=== PATIENT | male | born 1940 | race Caucasian/White ===

== ENCOUNTER 2021-06-28 07:05 | Outpatient (REF) | payer MEDICARE, SELFPAY ==
[2021-06-28 07:38] LABS: Prothrombin Time 11.9 SEC (9.9-13.0)
== END 2021-06-28 07:06 | disposition home or self-care (01) ==
LOC: HO.MMNH1L 07:05
PROVIDERS: Visit Provider Family Medicine
DX: I48.91 Unspecified atrial fibrillation (principal)
CPT/HCPCS: 36415; 85610

== ENCOUNTER 2021-07-01 05:00 | Outpatient (REF) | payer MEDICARE, SELFPAY | END 2021-07-01 05:01 | disposition home or self-care (01) | LOC: HO.MMNH1L 05:00 | PROVIDERS: Visit Provider Family Medicine | DX: Z13.89 Encounter for screening for other disorder (principal) ==

== ENCOUNTER 2021-07-03 07:02 | Outpatient (REF) | payer SELFPAY ==
[2021-07-03 07:24] LABS: MANUAL DIFF FLAG NO
[2021-07-03 07:27] LABS: Basophils Percent Auto 0.8 % (0-2); Eosinophils Absolute Auto 0.2 X10*3/uL (0.0-0.4); Eosinophils Percent Auto 4.1 % (0-4); Hematocrit 29.1 % (42-52); Hemoglobin 9.6 g/dl (14.0-18.0); Imm Gran Abs Auto 0.02 X10*3/uL (0.00-0.03); Imm Gran Pct Auto 0.4 % (0.0-0.4); Lymphocytes Absolute Auto 0.8 X10*3/uL (1.2-4.9); Lymphocytes Percent Auto 15.4 % (20-40); Mean Corpuscular Hemoglobin 33.6 pg (27.0-33.0); Mean Corpuscular Volume 101.7 fL (80-98); Mean Platelet Volume 10.7 fL (9.4-12.4); Monocytes Absolute Auto 0.7 X10*3/uL (0.1-1.2); Monocytes Percent Auto 13.7 % (2-11); Neutrophils Absolute Auto 3.5 X10*3/uL (2.0-8.3); Neutrophils Percent Auto 65.6 % (45-73); Platelet Count 124 X10*3/uL (160-400); Red Blood Count 2.86 X10*6/uL (4.60-5.80); Red Cell Distribution Width 14.6 % (11.0-16.0); White Blood Count 5.3 X10*3/uL (4.8-10.8)
[2021-07-03 07:35] LABS: INTERNATIONAL NORM RATIO 2.3 (0.9-1.1); Prothrombin Time 27.2 SEC (9.9-13.0)
[2021-07-03 08:26] LABS: Alanine Aminotransferase 6 U/L (0-40); Albumin Level 3.5 g/dL (3.5-5.0); Alkaline Phosphatase 69 U/L (39-117); Anion Gap 22 (12-20); Aspartate Amino Transferase 9 U/L (5-37); Bilirubin Total 0.5 mg/dL (0.0-1.0); Blood Urea Nitrogen 70 mg/dL (9-16); Calcium 7.5 mg/dL (8.4-10.2); Carbon Dioxide 21 mmol/L (22-29); Chloride 98 mmol/L (96-108); Estimated Glomerular Filt Rate 5; Glucose Random 70 mg/dL (60-115); Potassium 4.8 mmol/L (3.3-5.1); Sodium 136 mmol/L (135-145); Total Protein 6.1 g/dL (6.5-8.0)
== END 2021-07-03 07:03 | disposition home or self-care (01) ==
LOC: HO.MMNH1L 07:02
PROVIDERS: Visit Provider Family Medicine
DX: S22.32XA Fracture of one rib, left side, initial encounter for closed fracture (principal); W19.XXXA Unspecified fall, initial encounter; Y93.9 Activity, unspecified; Y92.9 Unspecified place or not applicable; Y99.9 Unspecified external cause status
CPT/HCPCS: 36415; 80053; 85025; 85610

== ENCOUNTER 2021-07-22 | Outpatient (REF) | payer MEDICARE, SELFPAY ==
[2021-07-22 06:24] LABS: Hematocrit 32.2 % (42-52); Hemoglobin 10.4 g/dl (14.0-18.0); Mean Corpuscular HGB Conc 32.3 g/dl (31.0-36.0); Mean Corpuscular Volume 102.2 fL (80-98); Mean Platelet Volume 11.6 fL (9.4-12.4); Platelet Count 133 X10*3/uL (160-400); Red Blood Count 3.15 X10*6/uL (4.60-5.80); Red Cell Distribution Width 14.5 % (11.0-16.0); White Blood Count 7.7 X10*3/uL (4.8-10.8)
[2021-07-22 06:28] LABS: INTERNATIONAL NORM RATIO 1.1 (0.9-1.1); Prothrombin Time 12.8 SEC (9.9-13.0)
[2021-07-22 07:34] LABS: Anion Gap 24 (12-20); Blood Urea Nitrogen 77 mg/dL (9-16); Calcium 8.9 mg/dL (8.4-10.2); Carbon Dioxide 22 mmol/L (22-29); Chloride 100 mmol/L (96-108); Glucose Random 101 mg/dL (60-115); Potassium 4.5 mmol/L (3.3-5.1); Sodium 141 mmol/L (135-145)
[2021-07-22 07:48] LABS: Estimated Glomerular Filt Rate 5
== END 2021-07-22 00:01 | disposition home or self-care (01) ==
LOC: HO.MMNH1L
PROVIDERS: Visit Provider Family Medicine
DX: I48.0 Paroxysmal atrial fibrillation (principal); I10 Essential (primary) hypertension; Z95.2 Presence of prosthetic heart valve
CPT/HCPCS: 36415; 80048; 85027; 85610

== ENCOUNTER 2021-07-24 | Outpatient (REF) | payer MEDICARE, SELFPAY ==
[2021-07-24 07:03] LABS: INTERNATIONAL NORM RATIO 1.1 (0.9-1.1); Prothrombin Time 12.5 SEC (9.9-13.0)
== END 2021-07-24 00:01 | disposition home or self-care (01) ==
LOC: HO.MMNH1L
PROVIDERS: Visit Provider Family Medicine
DX: I48.91 Unspecified atrial fibrillation (principal)
CPT/HCPCS: 36415; 85610

== ENCOUNTER 2021-07-29 00:21 | Outpatient (REF) | payer MEDICARE, SELFPAY ==
[2021-07-29 06:57] LABS: Hematocrit 33.9 % (42-52); Mean Corpuscular HGB Conc 32.4 g/dl (31.0-36.0); Mean Corpuscular Hemoglobin 33.4 pg (27.0-33.0); Mean Platelet Volume 11.1 fL (9.4-12.4); NRBC Pct Auto 0.7 /100WBC (0.0-0.2); Platelet Count 128 X10*3/uL (160-400); Red Blood Count 3.29 X10*6/uL (4.60-5.80); Red Cell Distribution Width 14.8 % (11.0-16.0); White Blood Count 6.7 X10*3/uL (4.8-10.8)
[2021-07-29 07:13] LABS: INTERNATIONAL NORM RATIO 1.6 (0.9-1.1); Prothrombin Time 17.8 SEC (9.9-13.0)
[2021-07-29 08:15] LABS: Anion Gap 23 (12-20); Blood Urea Nitrogen 59 mg/dL (9-16); Calcium 8.6 mg/dL (8.4-10.2); Carbon Dioxide 26 mmol/L (22-29); Chloride 97 mmol/L (96-108); Estimated Glomerular Filt Rate 6; Glucose Random 106 mg/dL (60-115); Potassium 3.6 mmol/L (3.3-5.1); Sodium 142 mmol/L (135-145)
== END 2021-07-29 00:22 | disposition home or self-care (01) ==
LOC: HO.MMNH1L 00:21
PROVIDERS: Visit Provider Family Medicine
DX: I48.0 Paroxysmal atrial fibrillation (principal); S22.32XA Fracture of one rib, left side, initial encounter for closed fracture; W19.XXXA Unspecified fall, initial encounter; Y93.9 Activity, unspecified; Y92.9 Unspecified place or not applicable; Y99.9 Unspecified external cause status
CPT/HCPCS: 36415; 80048; 85027; 85610

== ENCOUNTER 2021-08-01 06:03 | Outpatient (REF) | payer MEDICARE, SELFPAY ==
[2021-08-01 06:22] LABS: Hematocrit 34.9 % (42-52); Hemoglobin 11.4 g/dl (14.0-18.0); Mean Corpuscular HGB Conc 32.7 g/dl (31.0-36.0); Mean Corpuscular Hemoglobin 33.5 pg (27.0-33.0); Mean Corpuscular Volume 102.6 fL (80-98); Mean Platelet Volume 10.9 fL (9.4-12.4); NRBC Pct Auto 0.3 /100WBC (0.0-0.2); Platelet Count 102 X10*3/uL (160-400); Red Cell Distribution Width 15.1 % (11.0-16.0); White Blood Count 8.8 X10*3/uL (4.8-10.8)
[2021-08-01 07:12] LABS: Anion Gap 22 (12-20); Blood Urea Nitrogen 62 mg/dL (9-16); Calcium 8.4 mg/dL (8.4-10.2); Carbon Dioxide 24 mmol/L (22-29); Chloride 97 mmol/L (96-108); Glucose Random 100 mg/dL (60-115); Potassium 3.9 mmol/L (3.3-5.1); Sodium 139 mmol/L (135-145)
[2021-08-01 09:47] LABS: Estimated Glomerular Filt Rate 5
== END 2021-08-01 06:04 | disposition home or self-care (01) ==
LOC: HO.MMNH1L 06:03
PROVIDERS: Visit Provider Family Medicine
DX: N18.6 End stage renal disease (principal)
CPT/HCPCS: 36415; 80048; 85027

== ENCOUNTER 2021-08-05 00:11 | Outpatient (REF) | payer MEDICARE, SELFPAY ==
[2021-08-05 07:10] LABS: Hematocrit 35.9 % (42-52); Hemoglobin 11.7 g/dl (14.0-18.0); Mean Corpuscular HGB Conc 32.6 g/dl (31.0-36.0); Mean Corpuscular Hemoglobin 33.8 pg (27.0-33.0); Mean Corpuscular Volume 103.8 fL (80-98); Mean Platelet Volume 11.8 fL (9.4-12.4); NRBC Pct Auto 0.2 /100WBC (0.0-0.2); Platelet Count 100 X10*3/uL (160-400); Red Blood Count 3.46 X10*6/uL (4.60-5.80); Red Cell Distribution Width 15.6 % (11.0-16.0); White Blood Count 8.4 X10*3/uL (4.8-10.8)
[2021-08-05 07:11] LABS: INTERNATIONAL NORM RATIO 1.2 (0.9-1.1); Prothrombin Time 13.7 SEC (9.9-13.0)
[2021-08-05 08:06] LABS: Anion Gap 16 (12-20); Blood Urea Nitrogen 39 mg/dL (9-16); Calcium 8.6 mg/dL (8.4-10.2); Carbon Dioxide 27 mmol/L (22-29); Chloride 98 mmol/L (96-108); Estimated Glomerular Filt Rate 8; Glucose Random 119 mg/dL (60-115); Potassium 3.2 mmol/L (3.3-5.1); Sodium 138 mmol/L (135-145)
== END 2021-08-05 00:12 | disposition home or self-care (01) ==
LOC: HO.MMNH1L 00:11
PROVIDERS: Visit Provider Family Medicine
DX: I48.91 Unspecified atrial fibrillation (principal); S22.32XD Fracture of one rib, left side, subsequent encounter for fracture with routine healing; Z91.81 History of falling
CPT/HCPCS: 36415; 80048; 85027; 85610

== ENCOUNTER 2021-08-09 06:29 | Outpatient (REF) | payer MEDICARE, SELFPAY ==
[2021-08-09 06:54] LABS: INTERNATIONAL NORM RATIO 1.6 (0.9-1.1); Prothrombin Time 18.1 SEC (9.9-13.0)
== END 2021-08-09 06:30 | disposition home or self-care (01) ==
LOC: HO.MMNH1L 06:29
PROVIDERS: Visit Provider Family Medicine
DX: I48.91 Unspecified atrial fibrillation (principal)
CPT/HCPCS: 36415; 85610

== ENCOUNTER 2021-08-12 01:07 | Outpatient (REF) | payer MEDICARE, SELFPAY | END 2021-08-12 01:08 | disposition home or self-care (01) | LOC: HO.MMNH1L 01:07 | PROVIDERS: Visit Provider Family Medicine | DX: Z13.89 Encounter for screening for other disorder (principal) ==

== ENCOUNTER 2021-09-02 00:17 | Outpatient (REF) | payer SELFPAY ==
[2021-09-02 06:52] LABS: Hematocrit 38.9 % (42-52); Hemoglobin 12.6 g/dl (14.0-18.0); Mean Corpuscular HGB Conc 32.4 g/dl (31.0-36.0); Mean Corpuscular Volume 104.9 fL (80-98); Mean Platelet Volume 12.2 fL (9.4-12.4); Platelet Count 129 X10*3/uL (160-400); Red Blood Count 3.71 X10*6/uL (4.60-5.80); Red Cell Distribution Width 15.4 % (11.0-16.0)
[2021-09-02 06:55] LABS: INTERNATIONAL NORM RATIO 1.3 (0.9-1.1); Prothrombin Time 15.1 SEC (9.9-13.0)
[2021-09-02 07:53] LABS: Anion Gap 19 (12-20); Blood Urea Nitrogen 38 mg/dL (9-16); Calcium 8.3 mg/dL (8.4-10.2); Carbon Dioxide 29 mmol/L (22-29); Chloride 97 mmol/L (96-108); Estimated Glomerular Filt Rate 9; Glucose Random 111 mg/dL (60-115); Potassium 3.9 mmol/L (3.3-5.1); Sodium 141 mmol/L (135-145)
== END 2021-09-02 00:18 | disposition home or self-care (01) ==
LOC: HO.MMNH1L 00:17
PROVIDERS: Visit Provider Family Medicine
DX: I48.91 Unspecified atrial fibrillation (principal); S22.32XA Fracture of one rib, left side, initial encounter for closed fracture; W19.XXXA Unspecified fall, initial encounter; Y93.9 Activity, unspecified; Y92.9 Unspecified place or not applicable; Y99.9 Unspecified external cause status
CPT/HCPCS: 36415; 80048; 85027; 85610

== ENCOUNTER 2021-09-09 07:49 | Outpatient (REF) | payer SELFPAY ==
[2021-09-09 07:14] LABS: Hemoglobin 13.2 g/dl (14.0-18.0); Mean Corpuscular Hemoglobin 34.1 pg (27.0-33.0); Mean Corpuscular Volume 103.4 fL (80.0-98.0); Mean Platelet Volume 11.9 fL (9.4-12.4); Platelet Count 147 X10*3/uL (160-400); Red Blood Count 3.87 X10*6/uL (4.60-5.80); Red Cell Distribution Width 14.8 % (11.0-16.0); White Blood Count 8.9 X10*3/uL (4.8-10.8)
[2021-09-09 07:19] LABS: INTERNATIONAL NORM RATIO 1.2 (0.9-1.1)
[2021-09-09 07:43] LABS: Anion Gap 20 (12-20); Blood Urea Nitrogen 46 mg/dL (9-16); Calcium 8.8 mg/dL (8.4-10.2); Carbon Dioxide 26 mmol/L (22-29); Chloride 99 mmol/L (96-108); Glucose Random 94 mg/dL (60-115); Potassium 3.7 mmol/L (3.3-5.1); Sodium 141 mmol/L (135-145)
[2021-09-09 08:12] LABS: Estimated Glomerular Filt Rate 8
== END 2021-09-09 07:50 | disposition home or self-care (01) ==
LOC: HO.MMNH1L 07:49
PROVIDERS: Visit Provider Family Medicine
DX: I48.91 Unspecified atrial fibrillation (principal); S22.32XD Fracture of one rib, left side, subsequent encounter for fracture with routine healing; Z91.81 History of falling
CPT/HCPCS: 36415; 80048; 85027; 85610

== ENCOUNTER 2021-09-16 00:33 | Outpatient (REF) | payer MEDICARE, SELFPAY ==
[2021-09-16 06:54] LABS: Hemoglobin 12.4 g/dl (14.0-18.0); Mean Corpuscular HGB Conc 32.6 g/dl (31.0-36.0); Mean Corpuscular Hemoglobin 33.2 pg (27.0-33.0); Mean Corpuscular Volume 101.9 fL (80.0-98.0); Mean Platelet Volume 12.1 fL (9.4-12.4); Platelet Count 125 X10*3/uL (160-400); Red Blood Count 3.73 X10*6/uL (4.60-5.80); Red Cell Distribution Width 14.6 % (11.0-16.0); White Blood Count 5.5 X10*3/uL (4.8-10.8)
[2021-09-16 07:00] LABS: INTERNATIONAL NORM RATIO 1.2 (0.9-1.1); Prothrombin Time 13.6 SEC (9.9-13.0)
[2021-09-16 07:51] LABS: Anion Gap 20 (12-20); Blood Urea Nitrogen 37 mg/dL (9-16); Calcium 8.5 mg/dL (8.4-10.2); Carbon Dioxide 28 mmol/L (22-29); Chloride 97 mmol/L (96-108); Estimated Glomerular Filt Rate 9; Glucose Random 90 mg/dL (60-115); Potassium 3.8 mmol/L (3.3-5.1); Sodium 141 mmol/L (135-145)
== END 2021-09-16 00:34 | disposition home or self-care (01) ==
LOC: HO.MMNH1L 00:33
PROVIDERS: Visit Provider Family Medicine
DX: N18.6 End stage renal disease (principal); S22.32XA Fracture of one rib, left side, initial encounter for closed fracture
CPT/HCPCS: 36415; 80048; 85027; 85610

== ENCOUNTER 2021-09-23 00:33 | Outpatient (REF) | payer MEDICARE, SELFPAY ==
[2021-09-23 07:28] LABS: INTERNATIONAL NORM RATIO 1.2 (0.9-1.1); Prothrombin Time 13.2 SEC (9.9-13.0)
[2021-09-23 07:33] LABS: Hematocrit 38.9 % (42.0-52.0); Hemoglobin 12.8 g/dl (14.0-18.0); Mean Corpuscular HGB Conc 32.9 g/dl (31.0-36.0); Mean Corpuscular Hemoglobin 33.7 pg (27.0-33.0); Mean Corpuscular Volume 102.4 fL (80.0-98.0); Mean Platelet Volume 11.8 fL (9.4-12.4); Platelet Count 114 X10*3/uL (160-400); Red Cell Distribution Width 14.7 % (11.0-16.0); White Blood Count 5.3 X10*3/uL (4.8-10.8)
[2021-09-23 09:01] LABS: Anion Gap 20 (12-20); Blood Urea Nitrogen 38 mg/dL (9-16); Calcium 8.8 mg/dL (8.4-10.2); Carbon Dioxide 28 mmol/L (22-29); Chloride 99 mmol/L (96-108); Estimated Glomerular Filt Rate 8; Glucose Random 97 mg/dL (60-115); Potassium 4.2 mmol/L (3.3-5.1); Sodium 143 mmol/L (135-145)
== END 2021-09-23 00:34 | disposition home or self-care (01) ==
LOC: HO.MMNH1L 00:33
PROVIDERS: Visit Provider Family Medicine
DX: I63.511 Cerebral infarction due to unspecified occlusion or stenosis of right middle cerebral artery (principal); I50.40 Unspecified combined systolic (congestive) and diastolic (congestive) heart failure; I48.91 Unspecified atrial fibrillation; S22.32XD Fracture of one rib, left side, subsequent encounter for fracture with routine healing; Z91.81 History of falling
CPT/HCPCS: 36415; 80048; 85027; 85610

== ENCOUNTER 2021-09-30 22:08 | Outpatient (REF) | payer MEDICARE, SELFPAY ==
[2021-09-30 07:03] LABS: INTERNATIONAL NORM RATIO 1.1 (0.9-1.1); Prothrombin Time 12.4 SEC (9.9-13.0)
[2021-09-30 07:08] LABS: Hemoglobin 12.9 g/dl (14.0-18.0); Mean Corpuscular HGB Conc 32.3 g/dl (31.0-36.0); Mean Corpuscular Hemoglobin 33.5 pg (27.0-33.0); Mean Corpuscular Volume 103.9 fL (80.0-98.0); Mean Platelet Volume 11.5 fL (9.4-12.4); Platelet Count 146 X10*3/uL (160-400); Red Blood Count 3.85 X10*6/uL (4.60-5.80); Red Cell Distribution Width 14.7 % (11.0-16.0); White Blood Count 6.3 X10*3/uL (4.8-10.8)
[2021-09-30 07:25] LABS: Anion Gap 20 (12-20); Blood Urea Nitrogen 41 mg/dL (9-16); Calcium 8.9 mg/dL (8.4-10.2); Carbon Dioxide 29 mmol/L (22-29); Chloride 98 mmol/L (96-108); Glucose Random 95 mg/dL (60-115); Potassium 4.4 mmol/L (3.3-5.1); Sodium 143 mmol/L (135-145)
[2021-09-30 08:06] LABS: Estimated Glomerular Filt Rate 8
== END 2021-09-30 22:09 | disposition home or self-care (01) ==
LOC: HO.MMNH1L 22:08
PROVIDERS: Visit Provider Family Medicine
DX: S22.32XA Fracture of one rib, left side, initial encounter for closed fracture (principal); W19.XXXA Unspecified fall, initial encounter; Y93.9 Activity, unspecified; Y92.9 Unspecified place or not applicable; Y99.9 Unspecified external cause status
CPT/HCPCS: 36415; 80048; 85027; 85610

== ENCOUNTER 2021-10-02 | Outpatient (REF) | payer MEDICARE, SELFPAY ==
[2021-10-02 06:51] LABS: INTERNATIONAL NORM RATIO 1.2 (0.9-1.1); Prothrombin Time 13.6 SEC (9.9-13.0)
== END 2021-10-02 00:01 | disposition home or self-care (01) ==
LOC: HO.MMNH3L
PROVIDERS: Visit Provider Family Medicine
DX: I48.91 Unspecified atrial fibrillation (principal); Z86.73 Personal history of transient ischemic attack (TIA), and cerebral infarction without residual deficits
CPT/HCPCS: 36415; 85610

== ENCOUNTER 2021-10-04 06:37 | Outpatient (REF) | payer MEDICARE, SELFPAY ==
[2021-10-04 07:09] LABS: INTERNATIONAL NORM RATIO 1.1 (0.9-1.1); Prothrombin Time 12.4 SEC (9.9-13.0)
== END 2021-10-04 06:38 | disposition home or self-care (01) ==
LOC: HO.MMNH3L 06:37
PROVIDERS: Visit Provider Family Medicine
DX: I48.91 Unspecified atrial fibrillation (principal); Z86.73 Personal history of transient ischemic attack (TIA), and cerebral infarction without residual deficits; Z79.01 Long term (current) use of anticoagulants
CPT/HCPCS: 36415; 85610

== ENCOUNTER 2021-10-07 00:57 | Outpatient (REF) | payer MEDICARE, SELFPAY ==
[2021-10-07 07:10] LABS: Hematocrit 37.2 % (42.0-52.0); Hemoglobin 12.2 g/dl (14.0-18.0); Mean Corpuscular HGB Conc 32.8 g/dl (31.0-36.0); Mean Corpuscular Volume 100.5 fL (80.0-98.0); Mean Platelet Volume 11.7 fL (9.4-12.4); Platelet Count 138 X10*3/uL (160-400); Red Cell Distribution Width 14.4 % (11.0-16.0); White Blood Count 6.6 X10*3/uL (4.8-10.8)
[2021-10-07 07:15] LABS: INTERNATIONAL NORM RATIO 1.3 (0.9-1.1); Prothrombin Time 14.5 SEC (9.9-13.0)
[2021-10-07 07:57] LABS: Anion Gap 21 (12-20); Blood Urea Nitrogen 68 mg/dL (9-16); Carbon Dioxide 26 mmol/L (22-29); Chloride 96 mmol/L (96-108); Estimated Glomerular Filt Rate 6; Glucose Random 114 mg/dL (60-115); Potassium 4.4 mmol/L (3.3-5.1); Sodium 139 mmol/L (135-145)
== END 2021-10-07 00:58 | disposition home or self-care (01) ==
LOC: HO.MMNH1L 00:57
PROVIDERS: Visit Provider Family Medicine
DX: I48.91 Unspecified atrial fibrillation (principal); I50.40 Unspecified combined systolic (congestive) and diastolic (congestive) heart failure; S22.32XD Fracture of one rib, left side, subsequent encounter for fracture with routine healing; Z91.81 History of falling; Z86.73 Personal history of transient ischemic attack (TIA), and cerebral infarction without residual deficits
CPT/HCPCS: 36415; 80048; 85027; 85610

== ENCOUNTER 2021-10-09 | Outpatient (REF) | payer MEDICARE, SELFPAY ==
[2021-10-09 06:57] LABS: INTERNATIONAL NORM RATIO 1.3 (0.9-1.1); Prothrombin Time 14.4 SEC (9.9-13.0)
== END 2021-10-09 00:01 | disposition home or self-care (01) ==
LOC: HO.MMNH3L
PROVIDERS: Visit Provider Family Medicine
DX: I48.91 Unspecified atrial fibrillation (principal); Z86.73 Personal history of transient ischemic attack (TIA), and cerebral infarction without residual deficits
CPT/HCPCS: 36415; 85610

== ENCOUNTER 2021-10-14 00:18 | Outpatient (REF) | payer MEDICARE, SELFPAY ==
[2021-10-14 07:54] LABS: INTERNATIONAL NORM RATIO 1.1 (0.9-1.1)
[2021-10-14 08:04] LABS: Hematocrit 38.5 % (42.0-52.0); Hemoglobin 12.7 g/dl (14.0-18.0); Mean Corpuscular Hemoglobin 33.6 pg (27.0-33.0); Mean Corpuscular Volume 101.9 fL (80.0-98.0); Mean Platelet Volume 11.1 fL (9.4-12.4); Platelet Count 203 X10*3/uL (160-400); Red Blood Count 3.78 X10*6/uL (4.60-5.80); Red Cell Distribution Width 14.3 % (11.0-16.0); White Blood Count 8.9 X10*3/uL (4.8-10.8)
[2021-10-14 08:40] LABS: Anion Gap 20 (12-20); Blood Urea Nitrogen 47 mg/dL (9-16); Carbon Dioxide 26 mmol/L (22-29); Chloride 99 mmol/L (96-108); Estimated Glomerular Filt Rate 7; Glucose Random 96 mg/dL (60-115); Potassium 5.1 mmol/L (3.3-5.1); Sodium 140 mmol/L (135-145)
== END 2021-10-14 00:19 | disposition home or self-care (01) ==
LOC: HO.MMNH3L 00:18
PROVIDERS: Visit Provider Family Medicine
DX: I48.91 Unspecified atrial fibrillation (principal); S22.32XA Fracture of one rib, left side, initial encounter for closed fracture; W19.XXXA Unspecified fall, initial encounter; Y93.9 Activity, unspecified; Y92.9 Unspecified place or not applicable; Y99.9 Unspecified external cause status; Z86.711 Personal history of pulmonary embolism
CPT/HCPCS: 36415; 80048; 85027; 85610

== ENCOUNTER 2021-10-16 06:29 | Outpatient (REF) | payer MEDICARE, SELFPAY ==
[2021-10-16 06:50] LABS: INTERNATIONAL NORM RATIO 1.1 (0.9-1.1); Prothrombin Time 12.2 SEC (9.9-13.0)
== END 2021-10-16 06:30 | disposition home or self-care (01) ==
LOC: HO.MMNH3L 06:29
PROVIDERS: Visit Provider Family Medicine
DX: I48.91 Unspecified atrial fibrillation (principal); E08.40 Diabetes mellitus due to underlying condition with diabetic neuropathy, unspecified; Z86.711 Personal history of pulmonary embolism
CPT/HCPCS: 36415; 85610

== ENCOUNTER 2021-10-21 00:18 | Outpatient (REF) | payer MEDICARE, SELFPAY ==
[2021-10-21 07:03] LABS: INTERNATIONAL NORM RATIO 1.6 (0.9-1.1); Prothrombin Time 17.9 SEC (9.9-13.0)
[2021-10-21 07:05] LABS: Hemoglobin 12.1 g/dl (14.0-18.0); Mean Corpuscular HGB Conc 32.7 g/dl (31.0-36.0); Mean Corpuscular Hemoglobin 32.8 pg (27.0-33.0); Mean Corpuscular Volume 100.3 fL (80.0-98.0); Mean Platelet Volume 11.4 fL (9.4-12.4); NRBC Pct Auto 0.4 /100WBC (0.0-0.2); Platelet Count 174 X10*3/uL (160-400); Red Blood Count 3.69 X10*6/uL (4.60-5.80); Red Cell Distribution Width 14.7 % (11.0-16.0); White Blood Count 10.2 X10*3/uL (4.8-10.8)
[2021-10-21 07:39] LABS: Anion Gap 19 (12-20); Calcium 9.2 mg/dL (8.4-10.2); Carbon Dioxide 27 mmol/L (22-29); Chloride 95 mmol/L (96-108); Glucose Random 148 mg/dL (60-115); Sodium 137 mmol/L (135-145)
[2021-10-21 07:40] LABS: Blood Urea Nitrogen 43 mg/dL (9-16)
[2021-10-21 08:06] LABS: Estimated Glomerular Filt Rate 9
== END 2021-10-21 00:19 | disposition home or self-care (01) ==
LOC: HO.MMNH3L 00:18
PROVIDERS: Visit Provider Family Medicine
DX: I48.91 Unspecified atrial fibrillation (principal); I50.40 Unspecified combined systolic (congestive) and diastolic (congestive) heart failure; S22.32XD Fracture of one rib, left side, subsequent encounter for fracture with routine healing; Z91.81 History of falling; Z86.711 Personal history of pulmonary embolism
CPT/HCPCS: 36415; 80048; 85027; 85610

== ENCOUNTER 2021-10-28 01:29 | Outpatient (REF) | payer MEDICARE, SELFPAY ==
[2021-10-28 07:51] LABS: Anion Gap 20 (12-20); Blood Urea Nitrogen 52 mg/dL (9-16); Carbon Dioxide 28 mmol/L (22-29); Chloride 97 mmol/L (96-108); Estimated Glomerular Filt Rate 9; Glucose Random 146 mg/dL (60-115); Potassium 4.4 mmol/L (3.3-5.1); Sodium 141 mmol/L (135-145)
[2021-10-28 09:08] LABS: Hematocrit 36.2 % (42.0-52.0); Hemoglobin 11.7 g/dl (14.0-18.0); Mean Corpuscular HGB Conc 32.3 g/dl (31.0-36.0); Mean Corpuscular Hemoglobin 32.8 pg (27.0-33.0); Mean Corpuscular Volume 101.4 fL (80.0-98.0); Mean Platelet Volume 11.1 fL (9.4-12.4); NRBC Pct Auto 0.7 /100WBC (0.0-0.2); Platelet Count 219 X10*3/uL (160-400); Red Blood Count 3.57 X10*6/uL (4.60-5.80); Red Cell Distribution Width 15.2 % (11.0-16.0); White Blood Count 9.5 X10*3/uL (4.8-10.8)
== END 2021-10-28 01:30 | disposition home or self-care (01) ==
LOC: HO.MMNH3L 01:29
PROVIDERS: Visit Provider Family Medicine
DX: S22.32XA Fracture of one rib, left side, initial encounter for closed fracture (principal); W19.XXXA Unspecified fall, initial encounter; Y93.9 Activity, unspecified; Y92.9 Unspecified place or not applicable; Y99.9 Unspecified external cause status
CPT/HCPCS: 36415; 80048; 85027

== ENCOUNTER 2021-10-29 06:54 | Outpatient (REF) | payer MEDICARE, SELFPAY ==
[2021-10-29 08:05] LABS: INTERNATIONAL NORM RATIO 2.7 (0.9-1.1); Prothrombin Time 31.6 SEC (9.9-13.0)
== END 2021-10-29 06:55 | disposition home or self-care (01) ==
LOC: HO.MMNH3L 06:54
PROVIDERS: Visit Provider Family Medicine
DX: I48.91 Unspecified atrial fibrillation (principal); I50.40 Unspecified combined systolic (congestive) and diastolic (congestive) heart failure; Z86.73 Personal history of transient ischemic attack (TIA), and cerebral infarction without residual deficits
CPT/HCPCS: 36415; 85610

== ENCOUNTER 2021-11-04 00:51 | Outpatient (REF) | payer MEDICARE, SELFPAY ==
[2021-11-04 07:12] LABS: Hemoglobin 11.5 g/dl (14.0-18.0); Mean Corpuscular HGB Conc 31.9 g/dl (31.0-36.0); Mean Corpuscular Hemoglobin 33.1 pg (27.0-33.0); Mean Corpuscular Volume 103.7 fL (80.0-98.0); Mean Platelet Volume 10.2 fL (9.4-12.4); NRBC Pct Auto 0.4 /100WBC (0.0-0.2); Platelet Count 234 X10*3/uL (160-400); Red Blood Count 3.47 X10*6/uL (4.60-5.80); Red Cell Distribution Width 15.7 % (11.0-16.0); White Blood Count 8.1 X10*3/uL (4.8-10.8)
[2021-11-04 07:16] LABS: INTERNATIONAL NORM RATIO 2.1 (0.9-1.1); Prothrombin Time 24.7 SEC (9.9-13.0)
[2021-11-04 07:55] LABS: Anion Gap 15 (12-20); Blood Urea Nitrogen 24 mg/dL (9-16); Calcium 8.6 mg/dL (8.4-10.2); Carbon Dioxide 33 mmol/L (22-29); Chloride 96 mmol/L (96-108); Estimated Glomerular Filt Rate 14; Glucose Random 124 mg/dL (60-115); Potassium 3.4 mmol/L (3.3-5.1); Sodium 141 mmol/L (135-145)
== END 2021-11-04 00:52 | disposition home or self-care (01) ==
LOC: HO.MMNH3L 00:51
PROVIDERS: Visit Provider Family Medicine
DX: S22.32XD Fracture of one rib, left side, subsequent encounter for fracture with routine healing (principal); Z79.01 Long term (current) use of anticoagulants; Z91.81 History of falling
CPT/HCPCS: 36415; 80048; 85027; 85610

== ENCOUNTER 2021-11-11 00:21 | Outpatient (REF) | payer MEDICARE, SELFPAY ==
[2021-11-11 07:14] LABS: Hematocrit 36.8 % (42.0-52.0); Hemoglobin 11.8 g/dl (14.0-18.0); Mean Corpuscular HGB Conc 32.1 g/dl (31.0-36.0); Mean Corpuscular Hemoglobin 33.3 pg (27.0-33.0); Mean Platelet Volume 10.4 fL (9.4-12.4); Platelet Count 224 X10*3/uL (160-400); Red Blood Count 3.54 X10*6/uL (4.60-5.80); Red Cell Distribution Width 16.4 % (11.0-16.0); White Blood Count 7.8 X10*3/uL (4.8-10.8)
[2021-11-11 07:40] LABS: Anion Gap 15 (12-20); Blood Urea Nitrogen 35 mg/dL (9-16); Carbon Dioxide 30 mmol/L (22-29); Chloride 96 mmol/L (96-108); Estimated Glomerular Filt Rate 10; Glucose Random 124 mg/dL (60-115); Potassium 3.5 mmol/L (3.3-5.1); Sodium 137 mmol/L (135-145)
== END 2021-11-11 00:22 | disposition home or self-care (01) ==
LOC: HO.MMNH3L 00:21
PROVIDERS: Visit Provider Family Medicine
DX: S22.32XD Fracture of one rib, left side, subsequent encounter for fracture with routine healing (principal); Z91.81 History of falling
CPT/HCPCS: 36415; 80048; 85027

== ENCOUNTER 2021-11-18 00:50 | Outpatient (REF) | payer MEDICARE, SELFPAY ==
[2021-11-18 07:19] LABS: Hemoglobin 10.9 g/dl (14.0-18.0); Mean Corpuscular HGB Conc 32.1 g/dl (31.0-36.0); Mean Corpuscular Hemoglobin 32.8 pg (27.0-33.0); Mean Corpuscular Volume 102.4 fL (80.0-98.0); Mean Platelet Volume 11.5 fL (9.4-12.4); NRBC Pct Auto 0.2 /100WBC (0.0-0.2); Platelet Count 154 X10*3/uL (160-400); Red Blood Count 3.32 X10*6/uL (4.60-5.80); Red Cell Distribution Width 16.3 % (11.0-16.0); White Blood Count 9.2 X10*3/uL (4.8-10.8)
[2021-11-18 07:38] LABS: Anion Gap 19 (12-20); Blood Urea Nitrogen 72 mg/dL (9-16); Calcium 8.4 mg/dL (8.4-10.2); Carbon Dioxide 26 mmol/L (22-29); Chloride 98 mmol/L (96-108); Estimated Glomerular Filt Rate 6; Glucose Random 109 mg/dL (60-115); Potassium 4.2 mmol/L (3.3-5.1); Sodium 139 mmol/L (135-145)
== END 2021-11-18 00:51 | disposition home or self-care (01) ==
LOC: HO.MMNH3L 00:50
PROVIDERS: Visit Provider Family Medicine
DX: S22.32XA Fracture of one rib, left side, initial encounter for closed fracture (principal); W19.XXXA Unspecified fall, initial encounter; Y93.9 Activity, unspecified; Y92.9 Unspecified place or not applicable; Y99.9 Unspecified external cause status
CPT/HCPCS: 36415; 80048; 85027

== ENCOUNTER 2021-11-21 | Outpatient (REF) | payer MEDICARE, SELFPAY ==
[2021-11-21 07:03] LABS: INTERNATIONAL NORM RATIO 1.4 (0.9-1.1)
== END 2021-11-21 00:01 ==
LOC: HO.MMNH3L
PROVIDERS: Visit Provider Family Medicine
DX: Z79.01 Long term (current) use of anticoagulants (principal)
CPT/HCPCS: 36415; 85610

== ENCOUNTER 2021-12-16 | Outpatient (REF) | payer MEDICARE, SELFPAY ==
[2021-12-16 07:42] LABS: Hematocrit 39.2 % (42.0-52.0); Hemoglobin 12.6 g/dl (14.0-18.0); Mean Corpuscular HGB Conc 32.1 g/dl (31.0-36.0); Mean Corpuscular Hemoglobin 33.5 pg (27.0-33.0); Mean Corpuscular Volume 104.3 fL (80.0-98.0); Mean Platelet Volume 10.9 fL (9.4-12.4); NRBC Pct Auto 0.5 /100WBC (0.0-0.2); Platelet Count 213 X10*3/uL (160-400); Red Blood Count 3.76 X10*6/uL (4.60-5.80); Red Cell Distribution Width 16.7 % (11.0-16.0)
[2021-12-16 09:05] LABS: Anion Gap 18 (12-20); Blood Urea Nitrogen 32 mg/dL (9-16); Calcium 9.4 mg/dL (8.4-10.2); Carbon Dioxide 31 mmol/L (22-29); Chloride 97 mmol/L (96-108); Estimated Glomerular Filt Rate 11; Glucose Random 135 mg/dL (60-115); Potassium 3.5 mmol/L (3.3-5.1); Sodium 142 mmol/L (135-145)
== END 2021-12-16 00:01 | disposition home or self-care (01) ==
LOC: HO.MMNH3L
PROVIDERS: Visit Provider Family Medicine
DX: E46 Unspecified protein-calorie malnutrition (principal); E08.40 Diabetes mellitus due to underlying condition with diabetic neuropathy, unspecified; J44.9 Chronic obstructive pulmonary disease, unspecified
CPT/HCPCS: 36415; 80048; 85027